=== PATIENT | female | born 1940 | race Caucasian/White ===

== ENCOUNTER 2016-06-14 19:17 | Observation (INO) | payer MEDICARE ==
[2016-06-14] MEDS ORDERED: ONDANSETRON HCL 4 MG/2 ML VIAL ONE (19:35)
[2016-06-14] MEDS ORDERED: HYDROmorphone HCL 1 MG/ML SYR ONE (19:35)
[2016-06-14] MEDS ORDERED: LIDOCAINE/EPI 2% 1:200,000 10 ML VIAL ONE (19:40)
[2016-06-14] MEDS ORDERED: LIDOCAINE/EPI 2% 1:100,000 20 ML VIAL ONE (19:41)
[2016-06-14] MEDS ORDERED: HOME MEDICATION LIST NEEDED 1 EA EACH MISC ONE (21:02)
[2016-06-14 21:06] LABS: BASOPHILS 0.3 % (0.0-2.0); EOSINOPHILS 0.8 % (0.0-6.0); EOSINOPHILS# 0.1 X 10^3uL (0.0-0.4); HEMATOCRIT 41.4 % (36.0-48.0); HEMOGLOBIN 13.9 g/dL (12.0-16.0); LYMPHOCYTES# 1.3 X 10^3uL (0.8-3.8); MEAN CELL VOLUME 89.6 fL (80.0-100.0); MEAN CORPUS. HGB CONCENTRATION 33.7 g/dL (32.0-36.0); MEAN CORPUSCULAR HEMOGLOBIN 30.2 pg (29.0-35.0); MEAN PLATELET VOLUME 7.9 fL (7.4-10.4); MONOCYTES 4.5 % (2.0-10.0); MONOCYTES# 0.3 X 10^3uL (0.2-1.0); NEUTROPHILS 75.4 % (54.0-75.0); NEUTROPHILS# 5.3 X 10^3uL (2.6-6.7); PLATELET COUNT 300 X 10^3uL (130-440); RED BLOOD COUNT 4.62 X 10^6uL (4.20-6.10); RED CELL DISTRIBUTION WIDTH 12.5 % (11.5-14.5)
[2016-06-14 21:24] LABS: BLOOD UREA NITROGEN 13 mg/dL (7-17); CALCIUM 9.6 mg/dL (8.4-10.2); CHLORIDE 105 mmol/L (98-107); CREATININE 0.7 mg/dL (0.5-1.0); EST GLOMERULAR FILTRATION RATE > 60 mL/min; GLUCOSE 84 mg/dL (70-100); POTASSIUM 4.1 mmol/L (3.5-5.1); SODIUM 140 mmol/L (137-145)
[2016-06-14 21:36] LABS: TROPONIN I < 0.012 ng/mL (0.00-0.034)
--- NOTE | 2016-06-14 23:44 | ER NURSING DOCUMENTATION ---
Nurse's Notes [facility] Name:Marie Rocha Age:75 yrs Sex:Female :1940 Arrival Date:06/14/2016 Time:19:17 Bed6 Private MD:No PCP, Identified Diagnosis:Bimalleolar Ankle Fracture;Dislocation of Ankle;Difficulty Walking-ADLs...ect Presentation: 06/14 19:21 Presenting complaint: Patient states: Pt was hiking at [facility], tripped over her snow shoes and felt a pop in the right ankle. Pt has noticeable deformity. Good CMS, pt is in a splint placed by the [place]. Transition of care: Other RMNP. 19:21 Method Of Arrival: EMS: 410 19:21 Acuity: IVON 2 Triage Assessment: 19:23 General: Appears in no apparent distress, Behavior is cooperative. Pain: Complains of rh pain in right leg. Pain: Pain: Complains of pain in right ankle. 19:47 EENT: Oral mucosa is moist. Neuro: Level of Consciousness is awake, alert, obeys commands, Oriented to person, place, time, event. Cardiovascular: Capillary refill < 3 seconds Chest pain is denied. Respiratory: Airway is patent Respiratory effort is even, unlabored, Respiratory pattern is regular, symmetrical, Breath sounds are clear bilaterally. Denies shortness of breath. GI: Abdomen is non- distended Denies nausea. : No deficits noted. Derm: Skin is intact, is healthy with good turgor, Skin is pink, warm & dry. Musculoskeletal: Circulation, motion, and sensation intact Capillary refill < 3 seconds Bony deformity noted of right ankle Swelling present in right ankle. Historical: - Allergies: UNKOWN ANTIBIOTIC ; - Home Meds: 1. aspirin 81 mg oral tab 1 tab once daily 2. Claritin 10 mg oral tab 1 tab once daily - PMHx: HIGH CHOLESTEROL; - PSHx: Appendectomy; - Tetanus: < 10 years. - Ebola Screening: : Patient negative for fever greater than or equal to 101.5 degrees Fahrenheit, and additional compatible Ebola Virus Disease symptoms. - Immunization history: Flu Vaccine < 1 year. - Social history: Smoking status: Patient states former smoker of tobacco. Screenin:49 Infectious Disease Risk None. Abuse screen: Denies threats or abuse. Denies injuries rh from another. Nutritional screening: No deficits noted. Assessment: 19:49 See Triage Assessment done by same RN. rh 20:04 Musculoskeletal: Circulation, motion, and sensation intact Capillary refill < 3 seconds rh in right toes. 20:10 Reassessment: DR. Morfin here to see patient. . rh 20:20 Reassessment: Son here. rh Vital Signs: 19:20 BP 170 / 74; Pulse 75; Resp 16; Temp 98.8(O); Pulse Ox 98% on R/A; Weight 54.43 kg; rh Height 5 ft. (152.40 cm); Pain 0/10; 20:00 Pulse 70; Resp 16; Pulse Ox 97% on 2 lpm NC; Pain 0/10; rh 21:07 BP 133 / 62; Pulse 66; Resp 16; Pulse Ox 97% on 2 lpm NC; Pain 0/10; rh 21:55 BP 105 / 56; Pulse 66; Resp 16; Pulse Ox 94% on 1 lpm NC; Pain 0/10; rh 23:42 BP 115 / 58; Pulse 68; Resp 16; Pulse Ox 94% on .5 lpm NC; Pain 0/10; rh 19:20 Body Mass Index 23.44 (54.43 kg, 152.40 cm) rh ED Course: 19:18 Patient arrived in ED. em2 19:18 No PCP, Identified is Private Physician. em2 19:19 Bud Moore MD is Attending Physician. 19:20 Notified ED Physician of patient's arrival and chief complaint. Dr. Moore notified. rh 19:21 Myriam Ch is Primary Nurse. rh 19:22 Triage completed. rh 19:29 Port Xray Completed. kim 19:40 Assist Provider Assist provider with fracture care of right ankle Fracture is closed. rh Obvious deformity is noted. Circulation, motor and sensation is intact. Set up for procedure. Performed by Bud Moore MD Reduced with physical manipulation. Immobilized with OCL splint, Post immobilization, circulation, motor and sensation remain intact. Patient tolerated well. 19:45 Oxygen Oxygen administration via nasal cannula @ 2L/min. rh 19:49 Valuables Remains with patient Patient has correct armband on for positive rh identification. Placed in gown. Bed in low position. Call light in reach. Side rails up X 1. Pulse ox on. 19:58 Port Xray Completed. kim 19:58 ANKLE; [address] [place] [id number]+Rad Sent. kmi 20:47 Port Xray Completed. kim 20:47 ANKLE; [address] [place] [id number]+Rad Sent. kim 21:02 EKG done. (by ED staff). Reviewed by David Ramsey MD. 21:06 EKG attached ar 21:13 David Ramsey MD is Admitting Physician. Administered Medications: 19:30 Drug: Dilaudid 0.5 mg; Route: IVP; Site: right antecubital; rh 20:05 Follow up: Response: Pain is decreased 19:32 Drug: Zofran 4 mg; Route: IVP; Infused Over: 2 mins; Site: right antecubital; rh 20:05 Follow up: Response: Nausea is decreased Outcome: 21:14 Decision to Admit by Provider. 23:42 Admitted to Med/surg accompanied by nurse, via stretcher, with oxygen, with chart. 23:42 Condition: stable 23:42 Discharge Assessment: Patient awake, alert and oriented x 3. No cognitive and/or functional deficits noted. Patient verbalized understanding of disposition instructions. 23:42 Instructed on need to admit 23:43 Patient left the ED. Signatures: Malinda Chavez, Bud English RN, ma, MD MD jm Abbott, Laura lea Meinking-ace, Isabel 2 Myriam Ch
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
[2016-06-15] MEDS: NORMAL SALINE 1,000 ML IV SCH ×2 (00:24→21:32)
[2016-06-15] MEDS ORDERED: ONDANSETRON HCL 4 MG/2 ML VIAL IV PRN (06:16)
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
--- NOTE | 2016-06-15 07:08 | RADIOLOGY REPORT ---
Initial views of the right ankle at 1920 hours demonstrates a trimalleolar fracture dislocation of the ankle. There is posterolateral dislocation of the distal components. No other abnormality is identified. A second set of films at 1949 hours demonstrates interval partial reduction and splinting. Additional views at 2026 hours demonstrates interval reduction and resplinting. IMPRESSION: Trimalleolar fracture dislocation of the right ankle with subsequent reduction. [facility]
--- NOTE | 2016-06-15 08:33 | PROGRESS NOTE: IM APSO ---
Assessment and Plan - Date of Encounter Date of Encounter: 06/15/16 (1) Displaced trimalleolar fracture of right ankle Status: Acute Assessment and plan: Occurred at 14:30 on 06/14. Awaiting surgery today from Dr. Morfin, who will assume care after surgery. Doing well. Keep R leg elevated w/ intermittent ice. Current Visit: Yes (2) Hyperlipemia Status: Acute Assessment and plan: Intolerant of statins. No known IVD. Current Visit: Yes - Time Spent With Patient Total time spent with greater than 50% in coordination of care (as documented) at patient's floor/unit and/or counseling patient: IM: PN Subjective General: no fatigue, no confusion, no fever, no chills Cardiovascular: no chest pain Respiratory: no cough Gastrointestinal: no abdominal pain Genitourinary: no dysuria Musculoskeletal: no pain (denies pain in the R ankle) Integumentary: no rashes Neurological: no headache, no numbness, no tingling, no limb weakness IM: PN Objective Exam - I&O/Vital Signs I&O: Intake & Output 06/14/16 06/15/16 06/15/16 21:59 05:59 13:59 Intake Total 180 455 Output Total 1100 Balance -920 455 Weight 56.699 kg Intake: IV 455 Right Antecubital 455 Oral 180 Output: Urine 1100 Other: Urine Appearance Clear Urine Color Yellow Voiding Method Toilet # Voids 2 # Bowel Movements 0 Vital Signs: Last Vital Signs Temp 36.9 C 06/15/16 06:35 Pulse 69 06/15/16 06:35 Resp 14 06/15/16 06:35 BP 127/52 06/15/16 06:35 Pulse Ox 95 06/15/16 06:35 Oxygen Flow Rate 0.5 Oxygen Delivery Method Room Air - Constitutional General appearance: Present: average body habitus. Absent: acute distress - Head Head exam: Present: atraumatic, normal inspection - ENT ENT exam: Present: mucous membranes moist - Respiratory Respiratory exam: Present: clear - Cardiovascular Cardiovascular exam: Present: RRR. Absent: systolic murmur - GI/Abdominal GI/Abdominal exam: Present: soft. Absent: tenderness - Extremities Exam Extremities exam: Absent: edema (R foot in posterior splint. 1-2 second cap refill in toes. ) - Neurological Exam Neurological exam: Present: oriented X3 - Psychiatric Psychiatric exam: Present: normal mood - Skin Skin exam: Absent: rash - Lab Labs: Laboratory Last Values WBC 7.0 X 10^3uL (3.9-10.7) 06/14/16 19:06 RBC 4.62 X 10^6uL (4.20-6.10) 06/14/16 19:06 Hgb 13.9 g/dL (12.0-16.0) 06/14/16 19:06 Hct 41.4 % (36.0-48.0) 06/14/16 19:06 MCV 89.6 fL (80.0-100.0) 06/14/16 19:06 MCH 30.2 pg (29.0-35.0) 06/14/16 19:06 MCHC 33.7 g/dL (32.0-36.0) 06/14/16 19:06 RDW 12.5 % (11.5-14.5) 06/14/16 19:06 Plt Count 300 X 10^3uL (130-440) 06/14/16 19:06 MPV 7.9 fL (7.4-10.4) 06/14/16 19:06 Neutrophils % 75.4 % (54.0-75.0) H 06/14/16 19:06 Lymphocytes % 19.0 % (20.0-40.0) L 06/14/16 19:06 Eosinophils % 0.8 % (0.0-6.0) 06/14/16 19:06 Basophils % 0.3 % (0.0-2.0) 06/14/16 19:06 Neutrophils # 5.3 X 10^3uL (2.6-6.7) 06/14/16 19:06 Lymphocytes # 1.3 X 10^3uL (0.8-3.8) 06/14/16 19:06 Monocytes 4.5 % (2.0-10.0) 06/14/16 19:06 Monocytes # 0.3 X 10^3uL (0.2-1.0) 06/14/16 19:06 Eosinophils # 0.1 X 10^3uL (0.0-0.4) 06/14/16 19:06 Basophils # 0.0 X 10^3uL (0.0-0.1) 06/14/16 19:06 PT 13.8 sec (13.0-16.6) 06/14/16 19:06 INR 1.0 06/14/16 19:06 Sodium 140 mmol/L (137-145) 06/14/16 19:06 Potassium 4.1 mmol/L (3.5-5.1) 06/14/16 19:06 Chloride 105 mmol/L (98-107) 06/14/16 19:06 Carbon Dioxide 25 mmol/L (22-30) 06/14/16 19:06 BUN 13 mg/dL (7-17) 06/14/16 19:06 Creatinine 0.7 mg/dL (0.5-1.0) 06/14/16 19:06 GFR Calculation > 60 mL/min 06/14/16 19:06 Glucose 84 mg/dL (70-100) 06/14/16 19:06 Calcium 9.6 mg/dL (8.4-10.2) 06/14/16 19:06 Troponin I < 0.012 ng/mL (0.00-0.034) 06/14/16 19:06 Quality Questions - VTE Prophylaxis Assessment VTE Present on Admission?: No Patient at risk for venous thromboembolism?: No VTE Risk Level: High Risk VTE Medical Contraindication: Procedure contraindicated (1) Displaced trimalleolar fracture of right ankle Qualifiers: Encounter type: initial encounter Fracture type: closed Qualified Code(s): S82.851A - Displaced trimalleolar fracture of right lower leg, initial encounter for closed fracture
[2016-06-15] MEDS ORDERED: ceFAZolin 1 GM in NORMAL SALINE MINI-BAG+ 100 ML IV ONE (10:19)
--- NOTE | 2016-06-15 10:31 | PROGRESS NOTE: Orthopedics ---
Orthopedic PN Subjective - Subjective Principal Diagnosis: right ankle tri mal fracture Interval history: Pts pain has been well controlled. Has been elevating and ice in place. Ortho PN Objective Exam - Latest Vital Signs and I&O Latest Vital Signs/I&O: Vital Signs Temp 36.9 C 06/15/16 06:35 Pulse 69 06/15/16 06:35 Resp 14 06/15/16 06:35 BP 127/52 06/15/16 06:35 Pulse Ox 95 06/15/16 06:35 Intake & Output 06/14/16 06/15/16 06/15/16 17:59 05:59 17:59 Intake Total 180 455 Output Total 1100 Balance -920 455 Weight 56.699 kg Intake: IV 455 Right Antecubital 455 Oral 180 Output: Urine 1100 Other: Urine Appearance Clear Urine Color Yellow Voiding Method Toilet # Voids 2 # Bowel Movements 0 - Post-Operative Exam Distal Pulses: +2 Active Motor: intact Sensation: intact - Lab Labs: Laboratory Last Values WBC 7.0 X 10^3uL (3.9-10.7) 06/14/16 19:06 RBC 4.62 X 10^6uL (4.20-6.10) 06/14/16 19:06 Hgb 13.9 g/dL (12.0-16.0) 06/14/16 19:06 Hct 41.4 % (36.0-48.0) 06/14/16 19:06 MCV 89.6 fL (80.0-100.0) 06/14/16 19:06 MCH 30.2 pg (29.0-35.0) 06/14/16 19:06 MCHC 33.7 g/dL (32.0-36.0) 06/14/16 19:06 RDW 12.5 % (11.5-14.5) 06/14/16 19:06 Plt Count 300 X 10^3uL (130-440) 06/14/16 19:06 MPV 7.9 fL (7.4-10.4) 06/14/16 19:06 Neutrophils % 75.4 % (54.0-75.0) H 06/14/16 19:06 Lymphocytes % 19.0 % (20.0-40.0) L 06/14/16 19:06 Eosinophils % 0.8 % (0.0-6.0) 06/14/16 19:06 Basophils % 0.3 % (0.0-2.0) 06/14/16 19:06 Neutrophils # 5.3 X 10^3uL (2.6-6.7) 06/14/16 19:06 Lymphocytes # 1.3 X 10^3uL (0.8-3.8) 06/14/16 19:06 Monocytes 4.5 % (2.0-10.0) 06/14/16 19:06 Monocytes # 0.3 X 10^3uL (0.2-1.0) 06/14/16 19:06 Eosinophils # 0.1 X 10^3uL (0.0-0.4) 06/14/16 19:06 Basophils # 0.0 X 10^3uL (0.0-0.1) 06/14/16 19:06 PT 13.8 sec (13.0-16.6) 06/14/16 19:06 INR 1.0 06/14/16 19:06 Sodium 140 mmol/L (137-145) 06/14/16 19:06 Potassium 4.1 mmol/L (3.5-5.1) 06/14/16 19:06 Chloride 105 mmol/L (98-107) 06/14/16 19:06 Carbon Dioxide 25 mmol/L (22-30) 06/14/16 19:06 BUN 13 mg/dL (7-17) 06/14/16 19:06 Creatinine 0.7 mg/dL (0.5-1.0) 06/14/16 19:06 GFR Calculation > 60 mL/min 06/14/16 19:06 Glucose 84 mg/dL (70-100) 06/14/16 19:06 Calcium 9.6 mg/dL (8.4-10.2) 06/14/16 19:06 Troponin I < 0.012 ng/mL (0.00-0.034) 06/14/16 19:06 Assessment and Plan-Ortho - Date of Encounter Date of Encounter: 06/15/16 (1) Displaced trimalleolar fracture of right ankle Status: Acute Assessment and plan: Pt will undergo ORIF in AM. Elevate. Ice. NWB. NPO at DE. OK to take ASA. Current Visit: Yes Quality Questions - VTE Prophylaxis Assessment VTE Present on Admission?: No Patient at risk for venous thromboembolism?: Yes VTE Risk Level: Moderate Risk VTE Medical Contraindication: Not needed (1) Displaced trimalleolar fracture of right ankle Qualifiers: Encounter type: initial encounter Fracture type: closed Qualified Code(s): S82.851A - Displaced trimalleolar fracture of right lower leg, initial encounter for closed fracture
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
[2016-06-15] MEDS ORDERED: POLYETHYLENE GLYCOL 3350 17 GM POWD.PACK PO SCH (16:00)
[2016-06-15] MEDS: ACETAMINOPHEN 325 MG TABLET PO PRN ×2 (18:01→22:51)
[2016-06-15] MEDS: MORPHINE SULFATE 2 MG/ML SYR IV PRN ×2 (21:31→22:50)
[2016-06-15] MEDS ORDERED: MORPHINE SULFATE 2 MG/ML SYR IV ONE (23:05)
[2016-06-16] MEDS ORDERED: O2 HUMIDIFIER 650 ML BOTTLE INHALATION ONE (00:20)
[2016-06-16] MEDS: MORPHINE SULFATE 2 MG/ML SYR IV PRN ×3 (02:38→08:08)
[2016-06-16] MEDS: DIAZEPAM 10 MG/2 ML SYR IV PRN ×2 (07:03)
[2016-06-16] MEDS ORDERED: ceFAZolin 1 GM in NORMAL SALINE MINI-BAG+ 100 ML IV ONE (07:30)
--- NOTE | 2016-06-16 07:33 | PROGRESS NOTE: IM APSO ---
Assessment and Plan - Date of Encounter Date of Encounter: 06/16/16 (1) Displaced trimalleolar fracture of right ankle Status: Acute Assessment and plan: Occurred at 14:30 on 06/14. Surgery today from Dr. Morfin, who will assume care after surgery. Doing well, although more pain last night. Keeping R leg elevated w/ intermittent ice. Current Visit: Yes (2) Hyperlipemia Status: Acute Assessment and plan: Intolerant of statins. No known IVD. Current Visit: Yes - Time Spent With Patient Total time spent with greater than 50% in coordination of care (as documented) at patient's floor/unit and/or counseling patient: IM: PN Subjective General: fatigue, no confusion, no fever, no chills Cardiovascular: no chest pain Respiratory: no cough, no SOB Gastrointestinal: no abdominal pain Musculoskeletal: pain (07/10 R ankle) Integumentary: no rashes Neurological: no headache, no numbness, no tingling, no limb weakness IM: PN Objective Exam - I&O/Vital Signs I&O: Intake & Output 06/15/16 06/16/16 06/16/16 21:59 05:59 13:59 Intake Total 1468 021 9639 Output Total 1300 300 Balance 450 -50 1177 Weight 56.699 kg Intake: IV 550 1177 Right Antecubital 550 1177 Oral 1200 250 Output: Urine 1300 300 Other: Urine Appearance Clear Urine Color Yellow Voiding Method Toilet Toilet # Bowel Movements 0 Vital Signs: Last Vital Signs Temp 36.9 C 06/16/16 06:33 Pulse 70 06/16/16 06:33 Resp 13 06/16/16 06:33 BP 138/72 06/16/16 06:33 Pulse Ox 93 06/16/16 06:33 Oxygen Flow Rate 2 Oxygen Delivery Method Room Air - Constitutional General appearance: Present: average body habitus. Absent: acute distress - Head Head exam: Present: atraumatic - ENT ENT exam: Present: mucous membranes moist - Respiratory Respiratory exam: Present: clear - Cardiovascular Cardiovascular exam: Present: RRR. Absent: systolic murmur - GI/Abdominal GI/Abdominal exam: Present: soft. Absent: tenderness - Extremities Exam Extremities exam: Absent: edema (R foot in posterior splint. 1-2 second cap refill in toes. ) - Neurological Exam Neurological exam: Present: oriented X3 - Psychiatric Psychiatric exam: Present: normal mood - Skin Skin exam: Absent: rash - Allied Health Notes Allied health notes reviewed: case management, nursing, PT - Lab Labs: Laboratory Last Values WBC 7.0 X 10^3uL (3.9-10.7) 06/14/16 19:06 RBC 4.62 X 10^6uL (4.20-6.10) 06/14/16 19:06 Hgb 13.9 g/dL (12.0-16.0) 06/14/16 19:06 Hct 41.4 % (36.0-48.0) 06/14/16 19:06 MCV 89.6 fL (80.0-100.0) 06/14/16 19:06 MCH 30.2 pg (29.0-35.0) 06/14/16 19:06 MCHC 33.7 g/dL (32.0-36.0) 06/14/16 19:06 RDW 12.5 % (11.5-14.5) 06/14/16 19:06 Plt Count 300 X 10^3uL (130-440) 06/14/16 19:06 MPV 7.9 fL (7.4-10.4) 06/14/16 19:06 Neutrophils % 75.4 % (54.0-75.0) H 06/14/16 19:06 Lymphocytes % 19.0 % (20.0-40.0) L 06/14/16 19:06 Eosinophils % 0.8 % (0.0-6.0) 06/14/16 19:06 Basophils % 0.3 % (0.0-2.0) 06/14/16 19:06 Neutrophils # 5.3 X 10^3uL (2.6-6.7) 06/14/16 19:06 Lymphocytes # 1.3 X 10^3uL (0.8-3.8) 06/14/16 19:06 Monocytes 4.5 % (2.0-10.0) 06/14/16 19:06 Monocytes # 0.3 X 10^3uL (0.2-1.0) 06/14/16 19:06 Eosinophils # 0.1 X 10^3uL (0.0-0.4) 06/14/16 19:06 Basophils # 0.0 X 10^3uL (0.0-0.1) 06/14/16 19:06 PT 13.8 sec (13.0-16.6) 06/14/16 19:06 INR 1.0 06/14/16 19:06 Sodium 140 mmol/L (137-145) 06/14/16 19:06 Potassium 4.1 mmol/L (3.5-5.1) 06/14/16 19:06 Chloride 105 mmol/L (98-107) 06/14/16 19:06 Carbon Dioxide 25 mmol/L (22-30) 06/14/16 19:06 BUN 13 mg/dL (7-17) 06/14/16 19:06 Creatinine 0.7 mg/dL (0.5-1.0) 06/14/16 19:06 GFR Calculation > 60 mL/min 06/14/16 19:06 Glucose 84 mg/dL (70-100) 06/14/16 19:06 Calcium 9.6 mg/dL (8.4-10.2) 06/14/16 19:06 Troponin I < 0.012 ng/mL (0.00-0.034) 06/14/16 19:06 (1) Displaced trimalleolar fracture of right ankle Qualifiers: Encounter type: initial encounter Fracture type: closed Qualified Code(s): S82.851A - Displaced trimalleolar fracture of right lower leg, initial encounter for closed fracture
[2016-06-16 08:29] VITALS: TEMP 97.7
[2016-06-16] MEDS ORDERED: BUPIVACAINE/EPI 0.25% 1 VIAL VIAL ONE ×2 (08:30→12:18)
[2016-06-16] MEDS ORDERED: BACITRACIN 50,000 UNITS VIAL IM ONE (08:30)
[2016-06-16] MEDS ORDERED: BACITRACIN 14 APP/14 GM TUBE TOPICAL ONE (08:30)
[2016-06-16] MEDS ORDERED: MORPHINE SULFATE 2 MG/ML SYR IV PRN ×2 (08:43→13:28)
[2016-06-16] MEDS ORDERED: DIAZEPAM 10 MG/2 ML SYR IV PRN ×2 (08:43→13:28)
[2016-06-16] MEDS ORDERED: NORMAL SALINE 1,000 ML IV SCH ×2 (08:43→13:28)
[2016-06-16] MEDS ORDERED: ACETAMINOPHEN 325 MG TABLET PO PRN ×2 (08:43→13:28)
[2016-06-16] MEDS ORDERED: LIDOCAINE HCL 1% 20 ML VIAL SUBCUT ONE ×2 (08:43→13:28)
[2016-06-16] MEDS ORDERED: ONDANSETRON HCL 4 MG/2 ML VIAL IV PRN ×2 (08:43→13:28)
[2016-06-16] MEDS ORDERED: ACETAMINOPHEN 1,000 MG/100 ML VIAL IV SCH ×2 (08:45→13:28)
[2016-06-16] MEDS ORDERED: FAMOTIDINE IN SALINE, ISO-OSM 20 MG/50 ML PIGGYBACK IV SCH ×2 (08:45→13:28)
[2016-06-16] MEDS ORDERED: ceFAZolin 1 GM/10 ML VIAL ONE (08:47)
[2016-06-16] MEDS ORDERED: ACETAMINOPHEN 1,000 MG/100 ML VIAL IV ONE (08:51)
[2016-06-16] MEDS ORDERED: FAMOTIDINE IN SALINE, ISO-OSM 50 ML IV ONE (08:52)
[2016-06-16] MEDS ORDERED: LACTATED RINGERS 1,000 ML IV SCH ×3 (09:00→13:28)
[2016-06-16] MEDS ORDERED: FENTANYL 250 MCG/5 ML VIAL ONE (09:07)
[2016-06-16] MEDS ORDERED: SUCCINYLCHOLINE CHLORIDE 200 MG/10 ML VIAL ONE (09:07)
[2016-06-16] MEDS ORDERED: DEXAMETHASONE 4 MG/ML VIAL ONE (09:08)
[2016-06-16] MEDS ORDERED: LIDOCAINE HCL 2% 20 ML VIAL ONE (09:08)
[2016-06-16] MEDS ORDERED: LIDOCAINE HCL 2% JELLY 1 APP/5 ML TUBE ONE (09:08)
[2016-06-16] MEDS ORDERED: HYDROmorphone HCL 1 MG/ML SYR ONE (09:38)
[2016-06-16] MEDS ORDERED: FENTANYL 100 MCG/2 ML VIAL ONE (09:39)
[2016-06-16] MEDS ORDERED: ONDANSETRON HCL 4 MG/2 ML VIAL ONE ×2 (09:39→14:46)
[2016-06-16] MEDS ORDERED: EPHEDrine SULFATE 50 MG/ML VIAL ONE (11:00)
[2016-06-16] MEDS ORDERED: FENTANYL 100 MCG/2 ML VIAL IV PRN (13:28)
[2016-06-16] MEDS ORDERED: MORPHINE SULFATE 10 MG/ML SYR IV PRN (13:28)
[2016-06-16] MEDS ORDERED: HYDROmorphone HCL 1 MG/ML SYR IV PRN (13:28)
[2016-06-16] MEDS: ONDANSETRON HCL 4 MG/2 ML VIAL IV PRN ×2 (14:20→14:35)
[2016-06-16 15:17] VITALS: RESP 12
[2016-06-16 15:41] VITALS: O2SAT 92
[2016-06-16 15:48] VITALS: BP 134/58; PULSE 70
--- NOTE | 2016-06-16 16:22 | OPERATIVE REPORT ---
DATE OF SURGERY: 06/16/16 SURGEON: Сергей Morfin DO ANESTHESIA: General. PREOPERATIVE DIAGNOSIS: Right ankle trimalleolar fracture. POSTOPERATIVE DIAGNOSIS: Right ankle trimalleolar fracture. OPERATION PERFORMED: Right ankle open reduction, internal fixation. ESTIMATED BLOOD LOSS: Minimal. COMPLICATIONS: None. TOTAL TOURNIQUET TIME: 100 minutes. PROCEDURE NOTE: The patient was brought to the operating room suite and after administration of general anesthesia the right lower extremity was prepped and draped in a sterile fashion after applying a well padded tourniquet to the left proximal thigh. The incision sites were all injected with 0.25% bupivacaine with epinephrine prior to incision. The lateral incision was created first over the lateral malleoli. Any small bleeders were cauterized. All neurovascular structures were avoided. Dissection was carried down to the fracture. The hematoma material was evacuated with a curet and suctioned. A few millimeters of periosteum was elevated for optimal fracture reduction. The fracture was reduced with a sharp bone reduction clamp and a 3.5 Synthes plate was bent and fashioned over the top of the fracture. The dispatcher ship pilot holes were drilled, followed by insertion of the appropriate length screws with both locking and non-locking cortical and cancellous screws. This area was copiously irrigated with bacitracin infused with normal saline and closed in a stepwise fashion utilizing 0 Vicryl, followed by 3-0 Vicryl, followed by 3-0 nylon at the level of the skin in a running horizontal mattress suture. Attention was then drawn towards the medial malleoli. A curvilinear incision was made over the medial malleolus and dissection was carried down to the deltoid ligament which was torn. The fracture was well visualized, and a small 2 mm portion of the periosteum was elevated off of the fracture site for optimal reduction. The fracture was reduced under direct visualization, and also under fluoroscopic intensification. Two parallel K-wires were inserted retrograde into the tip of the medial malleolus. These were measured for depth, predrilled on the distal fragment only and the appropriate length partially threaded long screws were inserted. Fluoroscopic imaging revealed that the posterior malleolus still needed to be fixed as there was a significant portion of the articular surface, which was involved and in the Emergency Room, the patient did have a very unstable ankle which kept dislocating posteriorly. A perfect lateral was obtained with the C-arm, followed by placement of an incision on the anterior aspect of the ankle on the distal aspect of the tibia. Dissection was carried down with a sult-[id number]-yuszau technique to the level of the bone. Two parallel K-wires were inserted into the posterior malleolar fragment and the appropriate length screws were inserted after predrilling the dispatcher ship pilot holes. All the incisions were again infused with bacitracin infused with normal saline. The medial malleolar site with its disrupted deltoid ligament was repaired with a #1 Vicryl, followed by 0 Vicryl subcutaneously, followed by 3-0 Vicryl at the level of the subcutaneous closure which is also done anteriorly. The skin was closed with 3-0 nylon. All the incisions were dressed with bacitracin ointment, Xeroform, 4x4s, ABDs, cast padding, and a well- padded Tri-Stevenson plaster splint. The patient was transferred from the operating room suite to the recovery room in stable condition. HECTOR
--- NOTE | 2016-06-20 08:22 | RADIOLOGY REPORT ---
Two views of the right ankle are compared with prior films dated 06/14/2016. There has been interval open reduction and internal fixation of the previously noted trimalleolar fractures. Hardware is intact and in appropriate position. No new abnormality is identified. IMPRESSION: Interval open reduction and internal fixation. MTDD
== END 2016-06-16 13:28 | disposition home or self-care (01) ==
LOC: ER 19:17 → IN 23:35
PROVIDERS: ADMIT Family Medicine; ATTEND Family Medicine
DX: S82.851A Displaced trimalleolar fracture of right lower leg, initial encounter for closed fracture (principal); W00.0XXA Fall on same level due to ice and snow, initial encounter; E78.5 Hyperlipidemia, unspecified; Z79.899 Other long term (current) drug therapy
CPT/HCPCS: 64421; 76000; 80048; 84484; 85025; 85610; 93005; 96361; 96374; 96375; 96376; 99285; A0425; A0429; C1713; E0555; G0378; J0690; J1170; J2270; J2405; J2550; J3360; J7030